=== PATIENT | female | born 2000 | race Caucasian/White ===

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

== ENCOUNTER 2022-11-08 23:13 | Emergency (ER) | payer OTHER ==
[~2022-11-08] VITALS: Ht 149.9 cm; Wt 52.3 kg
[2022-11-08 23:18] VITALS: BP 153/93
[2022-11-08 23:31] VITALS: BP 136/80
[2022-11-08 23:45] VITALS: BP 130/86
[2022-11-08 23:47] LABS: BASO% 0.5 % (0-3); EOS% 0.1 % (0-8); HEMOGLOBIN 13.7 g/dl (12.0-16.0); IMMATURE GRANULOCYTES 0.4 % (0.0-5.0); LYMPH% 15.8 % (15-41); MEAN CELL VOLUME 86.8 fL CALC (80.0-100.0); MEAN CORPUSCULAR HGB 29.7 pG CALC (26.0-32.0); MEAN CORPUSCULAR HGB CONC 34.3 g/dL CAL (32.0-36.0); MONO% 5.1 % (2-13); NEUT# 6.64 thou/uL (2.00-7.15); NEUT% 78.1 % (42-76); RED BLOOD COUNT 4.61 mill/uL (4.20-5.60); RED CELL DISTRI WIDTH 11.9 % (11.5-15.5)
[2022-11-09 00:01] LABS: ALBUMIN 4.2 g/dL (3.2-5.0); ALKALINE PHOSPHATASE 72 u/l (38-126); ANION GAP 16 (6-22 (CALC)); BILIRUBIN, TOTAL 0.5 mg/dL (0.02-1.3); BUN 13 mg/dL (7-17); BUN/CREATININE RATIO 18 (12-20 (CALC)); CARBON DIOXIDE 20 mmol/l (22-30); CHLORIDE 111 mmol/l (95-108); CPK 118 u/l (30-135); CREATININE 0.8 mg/dL (0.5-1.0); ETHYL ALCOHOL 252 mg/dl (0-30); GFR FOR AFR.AMER. > 60 ML/MIN (>=60 (CALC)); GFR OTHER RACES > 60 ML/MIN (>=60 (CALC)); POTASSIUM 3.5 mmol/l (3.5-5.1); SGOT/AST 30 u/l (14-36); SODIUM 143 mmol/l (137-146); TOTAL PROTEIN 7.5 g/dL (6.3-8.2)
[2022-11-09 01:13] LABS: URINE BILIRUBIN - DIPSTICK Negative (NEGATIVE); URINE BLOOD DIPSTICK Moderate (NEGATIVE); URINE COLOR Yellow; URINE GLUCOSE - DIPSTICK Negative (NEGATIVE); URINE KETONE Negative (NEGATIVE); URINE LEUK ESTERASE Negative (NEGATIVE); URINE NITRITE - DIPSTICK Negative (Negative); URINE PROTEIN - DIPSTICK Trace mg/dL (NEG-TRACE); URINE SPECIFIC GRAVITY <=1.005; URINE UROBILINOGEN - DIPSTICK 0.2 E.U./dL (0.2)
[2022-11-09 01:46] LABS: URINE RBC 0-2 RBC/hpf (0-5); URINE SQUAMOUS EPITHELIAL CELL FEW EPI/hpf (0-FEW); URINE WBC 0-2 WBC/hpf (0-5)
[2022-11-09 02:03] VITALS: BP 118/76
== END 2022-11-09 02:14 | disposition home or self-care (01) ==
LOC: ED 23:13
PROVIDERS: Family Medicine
DX: Z04.1 Encounter for examination and observation following transport accident (principal); F10.129 Alcohol abuse with intoxication, unspecified; Y90.8 Blood alcohol level of 240 mg/100 ml or more

== ENCOUNTER 2023-12-16 10:51 | Emergency (ER) | payer OTHER ==
[2023-12-16] VITALS (10 sets, daily range): BP systolic 111–139; BP diastolic 63–118
[~2023-12-16] VITALS: Ht 149.9 cm; Wt 68.0 kg
[2023-12-16 12:00] LABS: BASO% 0.2 % (0-3); EOS% 0.2 % (0-8); HEMATOCRIT 45.1 % (37.0-47.0); HEMOGLOBIN 14.4 g/dl (12.0-16.0); IMMATURE GRANULOCYTES 0.7 % (0.0-5.0); LYMPH% 17.3 % (15-41); MEAN CORPUSCULAR HGB 30.6 pG CALC (26.0-32.0); MEAN CORPUSCULAR HGB CONC 31.9 g/dL CAL (32.0-36.0); MONO% 7.2 % (2-13); NEUT# 6.46 thou/uL (2.00-7.15); NEUT% 74.4 % (42-76); RED BLOOD COUNT 4.71 mill/uL (4.20-5.60); RED CELL DISTRI WIDTH 12.8 % (11.5-15.5)
[2023-12-16 12:01] LABS: MEAN CELL VOLUME 95.8 fL CALC (80.0-100.0)
[2023-12-16 12:12] LABS: ALBUMIN 4.2 g/dL (3.2-5.0); BILIRUBIN, TOTAL 0.7 mg/dL (0.02-1.3); CREATININE 0.8 mg/dL (0.5-1.0); POTASSIUM 4.3 mmol/l (3.5-5.1); TOTAL PROTEIN 7.5 g/dL (6.3-8.2)
[2023-12-16] MEDS ORDERED: ZOFRAN4 MG/TAB PO (13:38)
== END 2023-12-16 13:43 | disposition home or self-care (01) | DRG 90 ==
LOC: ED 10:51
PROVIDERS: Family Medicine
DX: S06.0X0A Concussion without loss of consciousness, initial encounter (principal); V49.40XA Driver injured in collision with unspecified motor vehicles in traffic accident, initial encounter